=== PATIENT | female | born 1955 | race Caucasian/White ===

== ENCOUNTER 2016-09-20 16:04 | Outpatient (RCR) | payer BC ==
[~2016-09-20 16:04] MED LIST: ALDACTONE 25MG25 M1 PO; ALDACTONE50 MG PO; AMOXICILLIN 8751 TAB PO; AMPICILLIN AND1 PD3 IV; ASPIRIN 32325 MG/TAB PO; ATACAND32 MG PO; BUDEPRION XL300 MG PO; CEPHALEXIN500 M1 PO; CLOBETASOL PROP50 ML TP; CLOBETASOL0.05% TP; COLACE 100100 MG/CAP PO; CORDARONE200 MG/TAB PO; COUMADIN 2MG2 MG/TAB PO; COUMADIN 77.5 MG/TAB PO; COUMADIN4 MG PO; CYMBALTA 30MG30 MG PO; CYMBALTA 60MG60 MG PO; Cordarone PO; EFFER-K20 MEQ PO; EFFEXOR-XR150 MG PO; ELIQUIS 2.5 PO; ELIQUIS 5MG PO; FENTANYL 100MCG TD; FENTANYL 100MCG TOP; FENTANYL 75MCG TOP; FERROUS SU325 MG/TAB PO; FLAGYL 250250 MG/TAB PO; GLUCOPHAGE500 MG/TAB PO; HEPARIN LOCK FLU5 M1 IV; IRON TABLETS325 MG PO; IRON65 M1 PO; JANTOVEN2 MG PO; K-DUR 2020 MEQ PO; LASIX 20MG TABL20 MG PO; LASIX 40MG TABL40 MG PO; LOPRESSOR 225 MG/TAB PO; LOVENOX 100100 MG/ML SQ; LYRICA 100MG C100 M1 PO; LYRICA200 MG PO; MASON NATURAL2000 IU PO; MOBIC 7.5MG7.5 MG PO; MOBIC15 MG PO; NEURONTIN300 MG/CAP PO; NORCO 325 MG-51 TAB PO; NORCO 325 MG-7.1 TAB PO; NORVASC 10MG10 MG PO; NS INT FLUSH 1010 ML IV; NYSTATIN POWDER30 GM TOP; OXYCONTIN 20MG20 MG PO; OXYCONTIN 80MG80 MG PO; OXYCONTIN40 MG PO; OXYCONTIN60 MG PO; PACERONE200 MG PO; REGLAN 5MG T5 MG/TAB PO; SEPTRA DS 8001 TAB PO; SYNTHROID0.1 MG/TAB PO; TOPROL XL 25MG25 MG PO; TRIAMCINOLONE A15 GM TP; TYLENOL 325MG325 MG PO; VALIUM 5MG T5 MG/TAB PO; VITAMIN D2000 I1 PO; VITAMIN D31000 I1 PO; VITAMIN E 400 U4001 PO; WELLBUTRIN XL300 M1 PO; ZANTAC 150MG T150 MG PO; ZANTAC 300300 MG PO
[2016-09-27] MEDS ORDERED: AMPICILLIN AND1 PD3 IV (02:02)
[2016-10-04] MEDS ORDERED: ZOSYN IV (13:56)
[2016-10-04] MEDS ORDERED: KLOR-CON M2020 MEQ PO (13:57)
== END 2016-11-23 08:38 | disposition home or self-care (01) ==
LOC: MKS.ESL.PT 16:04
DX: T84.51XD Infection and inflammatory reaction due to internal right hip prosthesis, subsequent encounter (principal); Y83.8 Other surgical procedures as the cause of abnormal reaction of the patient, or of later complication, without mention of misadventure at the time of the procedure

== ENCOUNTER 2016-11-16 14:30 | Outpatient (RCR) | payer BC ==
[2016-09-07 15:10] VITALS: BP 175/72; PULSE 54; TEMP 98.4
[2016-09-14 13:21] VITALS: BP 157/85; PULSE 55; TEMP 99
[2016-09-21 11:07] VITALS: BP 154/72; PULSE 76; TEMP 98.1
[2016-10-12 14:59] LABS: BASO % 0.4 % (0.0-2.0); EOS # 0.1 (0.0-0.7); EOS % 1.9 % (0-4.0); GRAN # 5.4 (1.4-6.5); GRAN % 70.9 % (42.2-75.2); LYMPH # 1.2 (1.2-3.4); LYMPH % 16.5 % (20.0-51.0); MEAN CELL VOLUME 97 fl (80.0-100.0); MEAN CORPUSCULAR HGB CONC 32 g/dl (33.0-37.0); MEAN PLATELET VOLUME 9.6 fl (7.4-10.4); MONO # 0.8 (0.1-0.6); PLATELET COUNT 246 K/mm3 (130-400); REDCELL DISTRIBUTION WIDTH-CV 15.4 % (11.5-14.5); WHITE BLOOD COUNT 7.5 K/mm3 (4.8-10.8)
[2016-10-12 15:00] LABS: HEMATOCRIT 29.2 % (37.0-47.0); HEMOGLOBIN 9.3 g/dl (12.5-16.0); MEAN CORPUSCULAR HEMOGLOBIN 31 pg (27.0-31.0)
[2016-10-12 15:11] LABS: CALCIUM 8.5 mg/dL (8.4-10.2); CREATININE, serum 2.72 mg/dL (0.52-1.25); POTASSIUM 4.9 mmol/L (3.4-5.0)
[2016-10-12 15:25] LABS: ERYTHROCYTE SEDIMENTATION RATE 57 mm/hr (0-30)
[2016-10-12 15:29] LABS: C-REACTIVE PROTEIN 16.6 mg/dL (0.0-0.9)
[2016-10-19 15:27] VITALS: BP 203/89; PULSE 46; TEMP 98.3
[2016-10-19 15:40] LABS: MEAN CELL VOLUME 96 fl (80.0-100.0); MEAN CORPUSCULAR HGB CONC 33 g/dl (33.0-37.0); MEAN PLATELET VOLUME 9.4 fl (7.4-10.4); PLATELET COUNT 237 K/mm3 (130-400); RED BLOOD COUNT 3.14 M/mm3 (4.10-5.30); REDCELL DISTRIBUTION WIDTH-CV 15.2 % (11.5-14.5); WHITE BLOOD COUNT 6.5 K/mm3 (4.8-10.8)
[2016-10-19 15:48] LABS: ADJUSTED CALCIUM 8.7 mg/dL (8.4-10.2); ALBUMIN 3.7 gm/dL (3.5-5.0); BILIRUBIN,TOTAL 0.9 mg/dL (0.0-1.0); CALCIUM 8.5 mg/dL (8.4-10.2); CREATININE, serum 2.15 mg/dL (0.52-1.25); POTASSIUM 3.5 mmol/L (3.4-5.0); TOTAL PROTEIN 6.9 gm/dL (6.4-8.2)
[2016-10-19 15:51] LABS: HEMATOCRIT 30.1 % (37.0-47.0); HEMOGLOBIN 9.9 g/dl (12.5-16.0); MEAN CORPUSCULAR HEMOGLOBIN 32 pg (27.0-31.0)
[2016-10-19 16:25] LABS: ERYTHROCYTE SEDIMENTATION RATE 24 mm/hr (0-30)
[2016-10-26 14:56] VITALS: BP 198/70; PULSE 55; TEMP 98
[2016-10-26 14:56] LABS: BASO % 0.3 % (0.0-2.0); EOS # 0.3 (0.0-0.7); EOS % 3.8 % (0-4.0); GRAN # 4.7 (1.4-6.5); GRAN % 65.7 % (42.2-75.2); LYMPH # 1.5 (1.2-3.4); LYMPH % 20.8 % (20.0-51.0); MEAN CELL VOLUME 94 fl (80.0-100.0); MEAN CORPUSCULAR HGB CONC 33 g/dl (33.0-37.0); MEAN PLATELET VOLUME 9.3 fl (7.4-10.4); MONO # 0.7 (0.1-0.6); MONO % 9.1 % (1.7-9.3); PLATELET COUNT 177 K/mm3 (130-400); RED BLOOD COUNT 3.57 M/mm3 (4.10-5.30); REDCELL DISTRIBUTION WIDTH-CV 15.3 % (11.5-14.5); WHITE BLOOD COUNT 7.1 K/mm3 (4.8-10.8)
[2016-10-26 14:58] LABS: HEMATOCRIT 33.5 % (37.0-47.0); HEMOGLOBIN 11.2 g/dl (12.5-16.0); MEAN CORPUSCULAR HEMOGLOBIN 31 pg (27.0-31.0)
[2016-10-26 15:07] LABS: ADJUSTED CALCIUM 8.5 mg/dL (8.4-10.2); BILIRUBIN,TOTAL 0.9 mg/dL (0.0-1.0); CALCIUM 8.5 mg/dL (8.4-10.2); POTASSIUM 3.4 mmol/L (3.4-5.0); TOTAL PROTEIN 7.5 gm/dL (6.4-8.2)
[2016-10-26 15:22] LABS: ERYTHROCYTE SEDIMENTATION RATE 11 mm/hr (0-30)
[2016-11-02 16:07] LABS: MEAN CELL VOLUME 94 fl (80.0-100.0); MEAN CORPUSCULAR HGB CONC 33 g/dl (33.0-37.0); MEAN PLATELET VOLUME 9.4 fl (7.4-10.4); PLATELET COUNT 136 K/mm3 (130-400); RED BLOOD COUNT 3.58 M/mm3 (4.10-5.30); REDCELL DISTRIBUTION WIDTH-CV 15.1 % (11.5-14.5); WHITE BLOOD COUNT 6.6 K/mm3 (4.8-10.8)
[2016-11-02 16:08] LABS: HEMOGLOBIN 11.2 g/dl (12.5-16.0); MEAN CORPUSCULAR HEMOGLOBIN 31 pg (27.0-31.0)
[2016-11-02 16:09] LABS: HEMATOCRIT 33.7 % (37.0-47.0)
[2016-11-02 16:22] LABS: ALBUMIN 3.8 gm/dL (3.5-5.0); BILIRUBIN,TOTAL 0.9 mg/dL (0.0-1.0); CALCIUM 8.8 mg/dL (8.4-10.2); CREATININE, serum 2.08 mg/dL (0.52-1.25); POTASSIUM 3.6 mmol/L (3.4-5.0)
[2016-11-02 16:53] LABS: ERYTHROCYTE SEDIMENTATION RATE 10 mm/hr (0-30)
[2016-11-09 15:07] VITALS: BP 177/62; PULSE 45; TEMP 98
[2016-11-09 15:07] LABS: BASO % 0.5 % (0.0-2.0); EOS # 0.4 (0.0-0.7); EOS % 6.3 % (0-4.0); GRAN # 3.1 (1.4-6.5); LYMPH # 2.2 (1.2-3.4); LYMPH % 34.9 % (20.0-51.0); MEAN CELL VOLUME 94 fl (80.0-100.0); MEAN CORPUSCULAR HGB CONC 33 g/dl (33.0-37.0); MEAN PLATELET VOLUME 9.4 fl (7.4-10.4); MONO # 0.6 (0.1-0.6); MONO % 10.1 % (1.7-9.3); PLATELET COUNT 174 K/mm3 (130-400); RED BLOOD COUNT 3.62 M/mm3 (4.10-5.30); REDCELL DISTRIBUTION WIDTH-CV 15.1 % (11.5-14.5); WHITE BLOOD COUNT 6.4 K/mm3 (4.8-10.8)
[2016-11-09 15:10] LABS: HEMATOCRIT 34.1 % (37.0-47.0); HEMOGLOBIN 11.3 g/dl (12.5-16.0); MEAN CORPUSCULAR HEMOGLOBIN 31 pg (27.0-31.0)
[2016-11-09 15:20] LABS: ADJUSTED CALCIUM 8.9 mg/dL (8.4-10.2); ALBUMIN 3.8 gm/dL (3.5-5.0); BILIRUBIN,TOTAL 0.8 mg/dL (0.0-1.0); CALCIUM 8.7 mg/dL (8.4-10.2); CREATININE, serum 2.03 mg/dL (0.52-1.25); POTASSIUM 3.5 mmol/L (3.4-5.0)
[2016-11-09 15:49] LABS: ERYTHROCYTE SEDIMENTATION RATE 6 mm/hr (0-30)
[~2016-11-16] VITALS: Ht 162.6 cm; Wt 112.0 kg
[~2016-11-16 14:30] MED LIST changes: +KLOR-CON M2020 MEQ PO; +ZOSYN IV
[2016-11-16 15:26] VITALS: BP 185/81; PULSE 51; TEMP 98.3
[2016-11-16 15:32] LABS: BASO % 0.4 % (0.0-2.0); EOS # 0.5 (0.0-0.7); EOS % 7.2 % (0-4.0); GRAN % 54.4 % (42.2-75.2); LYMPH # 2.2 (1.2-3.4); LYMPH % 29.3 % (20.0-51.0); MEAN CELL VOLUME 95 fl (80.0-100.0); MEAN CORPUSCULAR HGB CONC 34 g/dl (33.0-37.0); MEAN PLATELET VOLUME 9.4 fl (7.4-10.4); MONO # 0.6 (0.1-0.6); MONO % 8.4 % (1.7-9.3); PLATELET COUNT 190 K/mm3 (130-400); RED BLOOD COUNT 3.68 M/mm3 (4.10-5.30); REDCELL DISTRIBUTION WIDTH-CV 14.8 % (11.5-14.5); WHITE BLOOD COUNT 7.4 K/mm3 (4.8-10.8)
[2016-11-16 15:33] LABS: ADJUSTED CALCIUM 8.7 mg/dL (8.4-10.2); ALBUMIN 3.8 gm/dL (3.5-5.0); BILIRUBIN,TOTAL 0.7 mg/dL (0.0-1.0); C-REACTIVE PROTEIN 0.9 mg/dL (0.0-0.9); CALCIUM 8.5 mg/dL (8.4-10.2); CREATININE, serum 1.88 mg/dL (0.52-1.25); HEMATOCRIT 34.8 % (37.0-47.0); HEMOGLOBIN 11.8 g/dl (12.5-16.0); MEAN CORPUSCULAR HEMOGLOBIN 32 pg (27.0-31.0); POTASSIUM 3.9 mmol/L (3.4-5.0); TOTAL PROTEIN 6.8 gm/dL (6.4-8.2)
[2016-11-18 16:48] VITALS: BP 180/77; PULSE 65; TEMP 98
== END 2016-11-18 17:00 | disposition home or self-care (01) ==
LOC: EUO 14:30
PROVIDERS: Emergency Medicine; Internal Medicine Infectious Disease
DX: Z45.2 Encounter for adjustment and management of vascular access device (principal); Z47.89 Encounter for other orthopedic aftercare; M25.851 Other specified joint disorders, right hip
CPT/HCPCS: J1644

== ENCOUNTER 2017-01-06 11:32 | Inpatient (IN) | payer BC ==
[2017-01-06] VITALS (228 sets, daily range): BP systolic 156–166; BP diastolic 111–118; PULSE 81–100; TEMP 98.7–98.9; O2SAT 93–100
[~2017-01-06] VITALS: Ht 162.6 cm; Wt 229.6 kg
[2017-01-06 12:14] LABS: BASO % 0.4 % (0.0-2.0); EOS # 0.2 (0.0-0.7); EOS % 2.2 % (0-4.0); GRAN # 5.7 (1.4-6.5); GRAN % 66.5 % (42.2-75.2); HEMATOCRIT 40.5 % (37.0-47.0); HEMOGLOBIN 14.2 g/dl (12.5-16.0); LYMPH # 1.9 (1.2-3.4); LYMPH % 22.3 % (20.0-51.0); MEAN CELL VOLUME 90 fl (80.0-100.0); MEAN CORPUSCULAR HEMOGLOBIN 32 pg (27.0-31.0); MEAN CORPUSCULAR HGB CONC 35 g/dl (33.0-37.0); MEAN PLATELET VOLUME 9.1 fl (7.4-10.4); MONO # 0.7 (0.1-0.6); PLATELET COUNT 203 K/mm3 (130-400); RED BLOOD COUNT 4.49 M/mm3 (4.10-5.30); REDCELL DISTRIBUTION WIDTH-CV 13.8 % (11.5-14.5); WHITE BLOOD COUNT 8.5 K/mm3 (4.8-10.8)
[2017-01-06 12:29] LABS: INR 1.1 (0.8-3.0); PROTHROMBIN TIME 12.1 SECONDS (9.7-12.8)
[2017-01-06 12:32] LABS: PARTIAL THROMBOPLASTIN TIME 32.2 SECONDS (26.0-37.0)
[2017-01-06 12:35] LABS: ALANINE AMINOTRANSFERASE 31 U/L (9-52); ALBUMIN 3.9 gm/dL (3.5-5.0); ALKALINE PHOSPHATASE 123 U/L (50-136); ANION GAP 15 mmol/L (7-16); BILIRUBIN,TOTAL 0.9 mg/dL (0.0-1.0); BLOOD UREA NITROGEN 38 mg/dL (7-17); CALCIUM 8.9 mg/dL (8.4-10.2); CARBON DIOXIDE 27 mmol/L (22-30); CHLORIDE 101 mmol/L (98-107); CREATININE, serum 1.67 mg/dL (0.52-1.25); GLUCOSE 133 mg/dL (74-106); POTASSIUM 3.6 mmol/L (3.4-5.0); SODIUM 143 mmol/L (137-145); TOTAL PROTEIN 7.4 gm/dL (6.4-8.2)
[2017-01-06 12:49] LABS: TROPONIN-I < 0.012 ng/mL (0.000-0.034)
[2017-01-06 13:08] LABS: B-TYPE NATRIURETIC PEPTIDE 4960 pg/mL (0-125)
[2017-01-06 13:17] LABS: PH 7 (5-8); SQUAMOUS EPITHELIAL 0-2 /hpf; URINE APPEARANCE Clear; URINE BACTERIA None Seen /hpf; URINE BILIRUBIN Negative (NEGATIVE); URINE BLOOD Negative (NEGATIVE); URINE COLOR Yellow; URINE GLUCOSE Negative (NEGATIVE); URINE KETONE Negative (NEGATIVE); URINE RBC 0-2 /hpf; URINE UROBILINOGEN Negative (NEGATIVE); URINE WBC 0-2 /hpf
[2017-01-07] VITALS (751 sets, daily range): BP systolic 158–173; BP diastolic 82–109; PULSE 48–78; TEMP 97.7–98.9; O2SAT 82–100
[2017-01-07 06:50] LABS: TROPONIN-I 0.185 ng/mL (0.000-0.034)
[2017-01-07] MEDS ORDERED: PACERONE200 MG PO (13:02)
[2017-01-07] MEDS ORDERED: NORVASC 10MG10 MG PO (13:06)
[2017-01-07] MEDS ORDERED: LASIX 40MG TABL40 MG PO (13:16)
== END 2017-01-07 13:52 | disposition home or self-care (01) | DRG 281 ==
LOC: COL.ER 11:32 → ICU 16:26 → IMCU 19:00
PROVIDERS: Emergency Medicine
DX: I48.91 Unspecified atrial fibrillation (principal); I21.4 Non-ST elevation (NSTEMI) myocardial infarction; N17.9 Acute kidney failure, unspecified; I10 Essential (primary) hypertension
CPT/HCPCS: J1940; J7040

== ENCOUNTER → 2017-01-30 | Outpatient (CLI) | payer BC | LOC: COL.RAD 14:40 | DX: K80.20 Calculus of gallbladder without cholecystitis without obstruction (principal); N20.0 Calculus of kidney ==

== ENCOUNTER 2017-02-17 16:41 | Inpatient (IN) | payer BC ==
[~2017-02-17] VITALS: Ht 160 cm; Wt 106.2 kg
[2017-02-17 17:08] LABS: BASO % 0.3 % (0.0-2.0); EOS % 0.2 % (0-4.0); GRAN % 87.9 % (42.2-75.2); LYMPH % 8.6 % (20.0-51.0); MEAN CELL VOLUME 93 fl (80.0-100.0); MEAN CORPUSCULAR HEMOGLOBIN 32 pg (27.0-31.0); MEAN CORPUSCULAR HGB CONC 34 g/dl (33.0-37.0); MEAN PLATELET VOLUME 8.9 fl (7.4-10.4); MONO # 0.3 (0.1-0.6); MONO % 2.6 % (1.7-9.3); PLATELET COUNT 255 K/mm3 (130-400); REDCELL DISTRIBUTION WIDTH-CV 14.6 % (11.5-14.5); WHITE BLOOD COUNT 11.3 K/mm3 (4.8-10.8)
[2017-02-17 17:21] LABS: ADJUSTED CALCIUM 8.7 mg/dL (8.4-10.2); ALBUMIN 4.1 gm/dL (3.5-5.0); BILIRUBIN,TOTAL 0.8 mg/dL (0.0-1.0); CALCIUM 8.8 mg/dL (8.4-10.2); CREATININE, serum 1.95 mg/dL (0.52-1.25); POTASSIUM 4.8 mmol/L (3.4-5.0); TOTAL PROTEIN 7.3 gm/dL (6.4-8.2)
[2017-02-17 17:23] LABS: INR 1.1 (0.8-3.0); PROTHROMBIN TIME 11.8 SECONDS (9.7-12.8)
[2017-02-17 17:40] LABS: PH 6 (5-8); SQUAMOUS EPITHELIAL 0-2 /hpf; URINE APPEARANCE Clear; URINE BACTERIA None Seen /hpf; URINE BILIRUBIN Negative (NEGATIVE); URINE BLOOD 1+ (NEGATIVE); URINE COLOR Yellow; URINE GLUCOSE Negative (NEGATIVE); URINE KETONE Negative (NEGATIVE); URINE RBC 0-2 /hpf; URINE UROBILINOGEN Negative (NEGATIVE); URINE WBC 0-2 /hpf
[2017-02-17 20:37] VITALS: BP 185/72; PULSE 57; TEMP 98.6
[2017-02-17 21:50] VITALS: BP 180/85; PULSE 63
[2017-02-17 23:02] VITALS: BP 189/76
[2017-02-18] VITALS (7 sets, daily range): BP systolic 143–172; BP diastolic 62–74; PULSE 46–57; TEMP 97.8–98.7
[2017-02-18 07:26] LABS: BASO % 0.3 % (0.0-2.0); EOS % 0.4 % (0-4.0); GRAN # 6.4 (1.4-6.5); GRAN % 63.9 % (42.2-75.2); LYMPH # 2.6 (1.2-3.4); LYMPH % 26.3 % (20.0-51.0); MEAN CELL VOLUME 95 fl (80.0-100.0); MEAN CORPUSCULAR HGB CONC 34 g/dl (33.0-37.0); MEAN PLATELET VOLUME 9.1 fl (7.4-10.4); MONO # 0.9 (0.1-0.6); MONO % 8.8 % (1.7-9.3); PLATELET COUNT 258 K/mm3 (130-400); RED BLOOD COUNT 3.53 M/mm3 (4.10-5.30); REDCELL DISTRIBUTION WIDTH-CV 14.7 % (11.5-14.5)
[2017-02-18 07:28] LABS: CALCIUM 8.5 mg/dL (8.4-10.2); CREATININE, serum 1.64 mg/dL (0.52-1.25)
[2017-02-18 07:35] LABS: HEMATOCRIT 33.4 % (37.0-47.0); HEMOGLOBIN 11.5 g/dl (12.5-16.0); MEAN CORPUSCULAR HEMOGLOBIN 33 pg (27.0-31.0)
[2017-02-18] MEDS ORDERED: OXYCONTIN 20MG20 MG PO (09:07)
[2017-02-19 01:37] VITALS: BP 161/67; PULSE 43; TEMP 97.9
[2017-02-19 05:28] VITALS: BP 173/68; PULSE 44; TEMP 97.8
[2017-02-19 09:39] VITALS: BP 150/62; PULSE 43; TEMP 98
== END 2017-02-19 15:15 | disposition home or self-care (01) | DRG 389 ==
LOC: COL.ER 16:41 → SURG 18:47
PROVIDERS: Emergency Medicine; Family Medicine
PROC: 0D9670Z Drainage of Stomach with Drainage Device, Via Natural or Artificial Opening (ICD-10-PCS; principal; 2017-02-17)
DX: K56.60 Unspecified intestinal obstruction (principal); Z68.41 Body mass index [BMI] 40.0-44.9, adult; N17.9 Acute kidney failure, unspecified; I48.91 Unspecified atrial fibrillation; E66.01 Morbid (severe) obesity due to excess calories; E88.81 Metabolic syndrome and other insulin resistance; I12.9 Hypertensive chronic kidney disease with stage 1 through stage 4 chronic kidney disease, or unspecified chronic kidney disease; N18.9 Chronic kidney disease, unspecified; K80.20 Calculus of gallbladder without cholecystitis without obstruction
CPT/HCPCS: 99223-AI; J0360; J1644; J2250; J2270; J2405; J7030

== ENCOUNTER 2017-03-10 16:00 | Outpatient (RCR) | payer BC | END 2017-03-21 | disposition home or self-care (01) | LOC: MKS.ESL.PT | DX: T84.51XD Infection and inflammatory reaction due to internal right hip prosthesis, subsequent encounter (principal) ==

== ENCOUNTER → 2017-05-22 | Outpatient (CLI) | payer BC | LOC: COL.CARD 13:00 | DX: I48.91 Unspecified atrial fibrillation (principal); I48.92 Unspecified atrial flutter ==

== ENCOUNTER 2017-06-15 15:30 | Outpatient (RCR) | payer BC | END 2017-06-20 | LOC: MKS.ESL.PT | DX: M25.851 Other specified joint disorders, right hip (principal); Z74.09 Other reduced mobility ==

== ENCOUNTER → 2017-07-04 | Outpatient (CLI) | payer BC | LOC: COL.RAD 11:51 | DX: N17.9 Acute kidney failure, unspecified (principal); N18.9 Chronic kidney disease, unspecified ==

== ENCOUNTER 2017-07-06 15:30 | Outpatient (RCR) | payer BC | END 2017-07-10 13:47 | disposition still patient (30) | LOC: MKS.ESL.PT 15:30 | DX: G62.9 Polyneuropathy, unspecified (principal) ==

== ENCOUNTER 2017-07-20 14:12 | Outpatient (RCR) | payer BC | END 2017-10-18 | LOC: MKS.ESL.PT | DX: G62.9 Polyneuropathy, unspecified (principal) ==

== ENCOUNTER 2017-08-15 12:00 | Outpatient (RCR) | payer BC | END 2017-10-18 | LOC: MKS.ESL.PT | DX: G62.9 Polyneuropathy, unspecified (principal) ==

== ENCOUNTER → 2017-10-02 | Outpatient (CLI) | payer BC | LOC: MC.RAD 11:20 | DX: Z12.31 Encounter for screening mammogram for malignant neoplasm of breast (principal) ==

== ENCOUNTER 2017-11-27 12:15 | Day surgery (SDC) | payer BC ==
[~2017-11-27] VITALS: Ht 160 cm; Wt 90.0 kg
[2017-11-27] VITALS (8 sets, daily range): BP systolic 109–133; BP diastolic 56–91; PULSE 64–108; TEMP 99.2–99.7
[~2017-11-27 12:15] MED LIST changes: +SYNTHROID0.088 MG/T PO; -SYNTHROID0.1 MG/TAB PO
[2017-11-27] MEDS ORDERED: CORDARONE200 MG/TAB PO (12:34)
[2017-11-27] MEDS ORDERED: NORVASC 10MG10 MG PO (12:34)
[2017-11-27] MEDS ORDERED: LASIX 40MG TABL40 MG PO (12:35)
[2017-11-27] MEDS ORDERED: VALIUM 5MG T5 MG/TAB PO (12:37)
[2017-11-27] MEDS ORDERED: FERRO-TIME325 MG PO (12:38)
[2017-11-27] MEDS ORDERED: PRENATAL1 TA7 PO (12:42)
[2017-11-27 13:21] LABS: CREATININE, serum 1.77 mg/dL (0.52-1.25); POTASSIUM 3.7 mmol/L (3.4-5.0)
[2017-11-27 13:27] LABS: HEMATOCRIT 39.1 % (37.0-47.0); HEMOGLOBIN 13.4 g/dl (12.5-16.0); MEAN CELL VOLUME 94 fl (80.0-100.0); MEAN CORPUSCULAR HEMOGLOBIN 32 pg (27.0-31.0); MEAN CORPUSCULAR HGB CONC 34 g/dl (33.0-37.0); MEAN PLATELET VOLUME 9.8 fl (7.4-10.4); PLATELET COUNT 197 K/mm3 (130-400); RED BLOOD COUNT 4.14 M/mm3 (4.10-5.30); REDCELL DISTRIBUTION WIDTH-CV 12.3 % (11.5-14.5)
[2017-11-27 13:32] LABS: INR 1.5 (0.8-3.0); PROTHROMBIN TIME 17.2 SECONDS (9.7-12.8)
[2017-11-27 15:56] LABS: COLLECTION METHOD CLEAN CATCH
[2017-11-27 16:23] LABS: PH 5 (5-8); URINE APPEARANCE Hazy; URINE BILIRUBIN Negative (NEGATIVE); URINE BLOOD Negative (NEGATIVE); URINE COLOR Yellow; URINE GLUCOSE Negative (NEGATIVE); URINE KETONE Negative (NEGATIVE); URINE LEUKOCYTE ESTERASE Negative (NEGATIVE); URINE NITRATE Positive (NEGATIVE); URINE PROTEIN(semi-quant) Negative (NEGATIVE); URINE UROBILINOGEN Negative (NEGATIVE)
[2017-11-27 16:39] LABS: URINE BACTERIA Many /hpf
== END 2017-11-27 17:15 | disposition home or self-care (01) ==
LOC: COL.CAR 12:15
PROVIDERS: Internal Medicine Cardiovascular Disease
DX: D72.829 Elevated white blood cell count, unspecified (principal); I48.91 Unspecified atrial fibrillation; E66.01 Morbid (severe) obesity due to excess calories; E11.22 Type 2 diabetes mellitus with diabetic chronic kidney disease; I12.9 Hypertensive chronic kidney disease with stage 1 through stage 4 chronic kidney disease, or unspecified chronic kidney disease; N18.4 Chronic kidney disease, stage 4 (severe); Z95.0 Presence of cardiac pacemaker; Z88.1 Allergy status to other antibiotic agents; Z88.8 Allergy status to other drugs, medicaments and biological substances; K21.9 Gastro-esophageal reflux disease without esophagitis; M19.90 Unspecified osteoarthritis, unspecified site; G89.29 Other chronic pain; E07.9 Disorder of thyroid, unspecified; D64.9 Anemia, unspecified
CPT/HCPCS: J2704

== ENCOUNTER 2017-12-28 11:04 | Day surgery (SDC) | payer BC ==
[~2017-12-28] VITALS: Ht 160.1 cm; Wt 90.6 kg
[2017-12-28] VITALS (9 sets, daily range): BP systolic 123–152; BP diastolic 52–90; PULSE 43–109; TEMP 98.2–98.3
[~2017-12-28 11:04] MED LIST changes: +FERRO-TIME325 MG PO; +PRENATAL1 TA7 PO
[2017-12-28] MEDS ORDERED: ELIQUIS 5MG PO (11:23)
[2017-12-28] MEDS ORDERED: COLACE 100100 MG/CAP PO (11:26)
[2017-12-28] MEDS ORDERED: LASIX 40MG TABL40 MG PO ×2 (11:28→11:29)
[2017-12-28] MEDS ORDERED: DAZIDOX20 MG PO (11:31)
[2017-12-28] MEDS ORDERED: MAGNESIUM CHELA27 MG PO (11:34)
[2017-12-28] MEDS ORDERED: ALLI60 MG PO (11:35)
[2017-12-28 11:55] LABS: HEMOGLOBIN 12.3 g/dl (12.5-16.0); MEAN CELL VOLUME 94 fl (80.0-100.0); MEAN CORPUSCULAR HEMOGLOBIN 32 pg (27.0-31.0); MEAN CORPUSCULAR HGB CONC 34 g/dl (33.0-37.0); MEAN PLATELET VOLUME 9.6 fl (7.4-10.4); PLATELET COUNT 221 K/mm3 (130-400); RED BLOOD COUNT 3.82 M/mm3 (4.10-5.30)
[2017-12-28 11:57] LABS: CALCIUM 8.5 mg/dL (8.4-10.2); CREATININE, serum 2.97 mg/dL (0.52-1.25); POTASSIUM 3.2 mmol/L (3.4-5.0)
[2017-12-28 12:01] LABS: INR 1.2 (0.8-3.0); PROTHROMBIN TIME 14.5 SECONDS (9.7-12.8)
[2017-12-29 00:07] VITALS: BP 135/53; PULSE 59; TEMP 98.6
[2017-12-29 02:46] VITALS: BP 178/76; PULSE 97; TEMP 98.8
[2017-12-29 07:04] LABS: CALCIUM 8.1 mg/dL (8.4-10.2); CREATININE, serum 2.57 mg/dL (0.52-1.25); POTASSIUM 3.1 mmol/L (3.4-5.0)
[2017-12-29 08:08] VITALS: BP 162/56; PULSE 60; TEMP 97.3
[2017-12-29] MEDS ORDERED: TAMBOCOR150 MG PO (10:17)
[2017-12-29] MEDS ORDERED: LOPRESSOR 550 MG/TAB PO (10:22)
== END 2017-12-29 11:45 | disposition home or self-care (01) ==
LOC: COL.CAR 11:04 → MEDICAL 14:54 → COL.CAR 12-29 11:45
PROVIDERS: Internal Medicine Cardiovascular Disease; Nurse Practitioner
DX: I49.5 Sick sinus syndrome (principal); I48.0 Paroxysmal atrial fibrillation; D64.9 Anemia, unspecified; F32.9 Major depressive disorder, single episode, unspecified; Z79.01 Long term (current) use of anticoagulants; I12.9 Hypertensive chronic kidney disease with stage 1 through stage 4 chronic kidney disease, or unspecified chronic kidney disease; N18.9 Chronic kidney disease, unspecified; Z88.1 Allergy status to other antibiotic agents; Z88.8 Allergy status to other drugs, medicaments and biological substances
CPT/HCPCS: OP; C1769; C1785; C1894; C1898; J0690; J2250; J3010; J7030

== ENCOUNTER → 2018-04-12 | Outpatient (CLI) | payer BC ==
[~2018-04-12] MED LIST changes: +ALLI60 MG PO; +DAZIDOX20 MG PO; +LOPRESSOR 550 MG/TAB PO; +MAGNESIUM CHELA27 MG PO; +TAMBOCOR150 MG PO
== END ==
LOC: COL.RAD 10:30
DX: M25.551 Pain in right hip (principal); L03.115 Cellulitis of right lower limb